=== PATIENT | male | born 1945 | race Caucasian/White ===

== ENCOUNTER → 2023-11-14 10:55 | Outpatient (REF) | payer OTHER, MEDICARE, SELFPAY ==
[2023-11-14 11:53] LABS: % Basophils 0.7 % (0-2); % Immature Granulocytes 0.2 % (0-0.5); % Lymphocytes 29.3 % (20.5-51.1); % Neutrophils 51.8 % (42.2-75.2); Absolute Basophils 0.1 10^3/uL (0-0.2); Absolute Eosinophils 0.3 10^3/uL (0-0.7); Absolute Lymphocytes 2.4 10^3/uL (1.2-3.4); Absolute Monocytes 1.1 10^3/uL (0.1-0.6); Absolute Neutrophils 4.2 10^3/uL (1.4-6.5); Hematocrit 32.4 % (39.0-52.0); Hemoglobin 10.4 g/dL (13.0-18.0); Mean Corp Hgb Conc. 32.1 g/dL (33.0-37.0); Mean Corpuscular Hgb 28.3 pg (27.0-31.0); Mean Platelet Volume 9.2 fL (7.4-10.4); Nucleated Red Blood Cells % 0 % (-); Platelet Count 472 10^3/uL (130-400); Red Blood Cell Count 3.68 10^6/uL (4.70-6.10); Red Cell Dist. Width 13.5 % (11.5-14.5); White Blood Cell Count 8.1 10^3/uL (4.8-10.8)
[2023-11-14 12:17] LABS: ALT (SGPT) 17 U/L (0-50); AST (SGOT) 24 U/L (17-59); Albumin 3.5 g/dl (3.5-5.0); Alkaline Phosphatase 110 U/L (38-126); Blood Urea Nitrogen 21 mg/dl (9-20); Calcium 8.6 mg/dl (8.4-10.2); Carbon Dioxide 26 mmol/L (22-30); Chloride 102 mmol/L (98-107); Glucose 94 mg/dl (70-99); Magnesium 2.3 mg/dl (1.6-2.3); Potassium 4.4 mmol/L (3.5-5.1); Sodium 134 mmol/L (135-145); Total Bilirubin 0.8 mg/dl (0.2-1.3); Total Protein 6.4 g/dl (6.3-8.2); eGFR > 60.00
[2023-11-14 12:50] LABS: TSH 3.37 uIU/ml (0.47-4.68)
== END ==
LOC: OLABN 10:55
PROVIDERS: ATTENDING PHYSICIAN Student in an Organized Health Care Education/Training Program
DX: E03.9 Hypothyroidism, unspecified (principal); I10 Essential (primary) hypertension; E83.42 Hypomagnesemia; I82.509 Chronic embolism and thrombosis of unspecified deep veins of unspecified lower extremity
CPT/HCPCS: 36415; 80053; 83735; 84443; 85025

== ENCOUNTER → 2025-03-29 12:42 | Outpatient (REF) | payer MEDICARE, OTHER, SELFPAY | LOC: RAD 12:42 | PROVIDERS: ATTENDING PHYSICIAN Student in an Organized Health Care Education/Training Program; FAMILY PHYSICIAN Family Medicine | DX: I73.9 Peripheral vascular disease, unspecified (principal); I87.2 Venous insufficiency (chronic) (peripheral) | CPT/HCPCS: 93923; 93925; 93970 ==

== ENCOUNTER 2025-07-25 19:05 | Observation (INO) | payer MEDICARE, OTHER, SELFPAY ==
[2025-07-25 15:16] VITALS: BP 135/60
[2025-07-25 15:47] LABS: Hematocrit 47.2 % (39.0-52.0); Hemoglobin 15.2 g/dL (13.0-18.0); Mean Corp Hgb Conc. 32.2 g/dL (33.0-37.0); Mean Corpuscular Volume 89.1 fL (80.0-94.0); Nucleated Red Blood Cells % 0 % (-); Platelet Count 219 10^3/uL (130-400); Red Cell Dist. Width 13.2 % (11.5-14.5)
[2025-07-25 16:03] LABS: ALT (SGPT) 26 U/L (0-50); AST (SGOT) 22 U/L (17-59); Albumin 4.5 g/dl (3.5-5.0); Alkaline Phosphatase 52 U/L (38-126); Blood Urea Nitrogen 22 mg/dl (9-20); Calcium 9.1 mg/dl (8.4-10.2); Carbon Dioxide 25 mmol/L (22-30); Chloride 108 mmol/L (98-107); Glucose 112 mg/dl (70-99); Potassium 4.4 mmol/L (3.5-5.1); Sodium 137 mmol/L (135-145); Total Protein 7.9 g/dl (6.3-8.2); eGFR > 60.00
[2025-07-25 16:19] LABS: Urine Character Clear (Clear)
[2025-07-25 17:14] VITALS: BMI 28.2
--- NOTE | 2025-07-25 17:40 | ED.MUSCINJ ---
HPI-Injury
<GERMAINE Zheng Last Filed: 07/25/25 18:07>
General
Chief Complaint: Fall
Source: patient
Exam Limitations: none
Time Seen by Provider: 07/25/25 17:14
History of Present Illness-Injury
Initial Injury comments:
79-year-old male with history of COPD hyperlipidemia hypertension GERD presents with onset of dizziness this morning upon awakening. He describes a lightheaded sensation. He tried to get out of bed and fell because of his dizziness. He scraped
his arm against a nightstand. No loss conscious. He has not been acting himself since then. He seemed confused at times. He does describe this dizziness seems to be made worse with position changes and seems to improve with staying still however
symptoms persist throughout the day. No chest pain or shortness of breath. No fevers recently. No issues urinating or moving bowels. No other complaints. He denies any double vision or blurry vision. No neck pain.
Phy Exam
<GERMAINE Zheng Last Filed: 07/25/25 18:07>
Physical Exam
Physical Exam:
General: Well-appearing male no acute respiratory distress
HEENT normal cephalic atraumatic pupils equal round reactive to light maybe subtle horizontal nystagmus noted
Lungs: Clear no wheeze
Heart: Regular rate and rhythm
Lungs: Clear no wheeze
Neurologic exam: Alert and oriented finger-nose intact [id number] intact no drift on exam. Zafar-Hallpike not terribly reproducing symptoms however he had some dizziness when he lays down and turns his head to the left. There is no nystagmus noted
at this time.
Extremities: No cyanosis or edema
Injury Course
<Tejinder Donald PA-C - Last Filed: 07/25/25 18:07>
Orders/Labs/Results
Orders:
Orders
07/25/25 15:26
Electrocardiogram (*1) Urgent
Reason for Study: Chest Pain
EKG- Treatment ONCE
07/25/25 15:34
Complete Blood Count/With Diff Urgent
Comprehensive Metabolic Panel Urgent
Urinalysis Reflex To Culture Urgent
Date Specimen was Collected: 07/25/25
Time Specimen was Collected: 15:27
Urine Microscopic Reflex Cult Urgent
Urine Culture Urgent
ELIAS Source: U
Specimen Description:
Date Specimen was Collected: 07/25/25
Time Specimen was Collected: 15:27
07/25/25 17:[address] [CT Head W/o Iv Contrast] Urgent
Comment:
Reason For Exam: dizziness/gait dysfunction
07/25/25 17:31
Orthostatic VS- Treatment ONCE
07/25/25 18:26
Aspirin 325 mg PO NOW STA
07/25/25 18:34
Admit/Transfer Patient As Directed
Co-Sign Provider:
Level of Care: Observation services
Assign to:: Telemetry
Physician / Group: ran
Diagnosis: tia/cva
Reason for Telemetry: CVA/TIA
Date to Stop Telemetry: 07/28/25
Time to Stop Telemetry: 11:00
PRN Pain Medication Management As Directed
May give lesser potent ordered pain med per pt: Yes
preference::
Protocol:: Medication orders for pain may be administered in a
manner that supports deferring to patient preference
when the pt is:
- Requesting an ordered lesser potent pain medication.
Least to most potent pain medications are defined
as: acetaminophen < NSAID < tramadol < opioids
(morphine, oxycodone, hydromorphone).
- Requesting a lesser dose of the same medication IF
ORDERED.
- Requesting a less intrusive route of administration
if both routes are prescribed by the provider (PO <
IV).
07/25/25 18:35
Code Status As Directed
Resuscitation Status: Full Code
07/25/25 18:[address] Non Medication Order As Directed
Physician Order: please TT me results of orthostatic VS
07/28/25 11:00
DC Protocol for Telemetry ONCE
Abnormal Lab Results
07/25/25
15:34
MCHC 32.2 L g/dL
(33.0-37.0)
Absolute Monos (auto) 1.1 H 10^3/uL
(0.1-0.6)
Monocytes % 11.2 H %
(1.7-9.3)
Chloride 108 H mmol/L
(98-107)
BUN 22 H mg/dl
(9-20)
Glucose 112 H mg/dl
(70-99)
Ur Occult Blood Reflex 2+ A
(Negative)
Urine RBC 3-6 A /HPF
(0-2)
Urine Bacteria (Reflex) Moderate A
(Negative)
Urine Albumin (Reflex) 1+ A
(Neg - Trace)
07/25/25 15:34
07/25/25 15:34
<Braulio Perez, DO - Last Filed: 07/25/25 18:43>
Orders/Labs/Results
Orders:
Orders
07/25/25 15:26
Electrocardiogram (*1) Urgent
Reason for Study: Chest Pain
EKG- Treatment ONCE
07/25/25 15:34
Complete Blood Count/With Diff Urgent
Comprehensive Metabolic Panel Urgent
Urinalysis Reflex To Culture Urgent
Date Specimen was Collected: 07/25/25
Time Specimen was Collected: 15:27
Urine Microscopic Reflex Cult Urgent
Urine Culture Urgent
ELIAS Source: U
Specimen Description:
Date Specimen was Collected: 07/25/25
Time Specimen was Collected: 15:27
07/25/25 17:[address] [CT Head W/o Iv Contrast] Urgent
Comment:
Reason For Exam: dizziness/gait dysfunction
07/25/25 17:31
Orthostatic VS- Treatment ONCE
07/25/25 18:26
Aspirin 325 mg PO NOW STA
07/25/25 18:34
Admit/Transfer Patient As Directed
Co-Sign Provider:
Level of Care: Observation services
Assign to:: Telemetry
Physician / Group: ran
Diagnosis: tia/cva
Reason for Telemetry: CVA/TIA
Date to Stop Telemetry: 07/28/25
Time to Stop Telemetry: 11:00
PRN Pain Medication Management As Directed
May give lesser potent ordered pain med per pt: Yes
preference::
Protocol:: Medication orders for pain may be administered in a
manner that supports deferring to patient preference
when the pt is:
- Requesting an ordered lesser potent pain medication.
Least to most potent pain medications are defined
as: acetaminophen < NSAID < tramadol < opioids
(morphine, oxycodone, hydromorphone).
- Requesting a lesser dose of the same medication IF
ORDERED.
- Requesting a less intrusive route of administration
if both routes are prescribed by the provider (PO <
IV).
07/25/25 18:35
Code Status As Directed
Resuscitation Status: Full Code
07/25/25 18:[address] Non Medication Order As Directed
Physician Order: please TT me results of orthostatic VS
07/28/25 11:00
DC Protocol for Telemetry ONCE
Abnormal Lab Results
07/25/25
15:34
MCHC 32.2 L g/dL
(33.0-37.0)
Absolute Monos (auto) 1.1 H 10^3/uL
(0.1-0.6)
Monocytes % 11.2 H %
(1.7-9.3)
Chloride 108 H mmol/L
(98-107)
BUN 22 H mg/dl
(9-20)
Glucose 112 H mg/dl
(70-99)
Ur Occult Blood Reflex 2+ A
(Negative)
Urine RBC 3-6 A /HPF
(0-2)
Urine Bacteria (Reflex) Moderate A
(Negative)
Urine Albumin (Reflex) 1+ A
(Neg - Trace)
07/25/25 15:34
07/25/25 15:34
<Tejinder Donald PA-C - Last Filed: 07/25/25 18:07>
MDM/Problems Addressed
Differential Diagnosis Includes:
Patient with dizziness causing a fall. No traumatic injury from the fall. Concern for vertigo, TIA, orthostasis.
Labs reviewed without significant finding. Urinalysis without any findings.
Will check CT of the head and orthostatics.
<Tejinder Donald PA-C - Last Filed: 07/25/25 18:07>
*Pulse Oximetry
SaO2: 99
Oxygen Mode of Delivery: Room air
Patient hypoxic: no
*Critical Care Note
Total Time (30-74mins, 75-104mins- exclusive of procedures): Not Applicable
<Tejinder Donald PA-C - Last Filed: 07/25/25 18:07>
Update Note
Update Note:
CT of the head was negative. Concern for ongoing disequilibrium no obvious reproducible dizziness to suggest positional vertigo. Discussed with emergency room attending. Will keep in hospital for further workup
ED Attending Note
<Tejinder Donald PA-C - Last Filed: 07/25/25 18:07>
-
Portions of this chart may have been created with voice recognition software.� Occasional wrong word or��sound alike� substitutions may have occurred due to the inherent limitations of voice recognition software.
<Braulio Perez DO - Last Filed: 07/25/25 18:43>
ED Attending Note
Patient seen and examined by attending physician: Yes
ED Attending Note:
I reviewed and agree with history and treatment plan by Manish Donald. My exam revealed 79-year-old male with no neurologic deficits, unclear if positional vertigo versus posterior CVA. No indication for tPA or TNK admit for further workup.
Discharge Plan
Departure
Patient Disposition: Admit
Date of Disposition: 07/25/25
Time of Disposition: 18:07
Presentation/result/management discussed w/ accepting MD/DO: Hospitalist
Discharge Problem:
Dizziness
Prescriptions:
No Action
loperamide 2 mg capsule
2 mg PO DAILY
atorvastatin 10 mg tablet
10 mg PO DAILY
losartan 25 mg Tablet
25 mg PO DAILY
Referrals:
Krzysztof Montesinos MD [Family Provider, Family Practice]
Interventions
Interventions:
*Risk Screen - Suicide Last Done: 07/25/25 15:16
*Neglect/Abuse Screening Last Done: 07/25/25 15:16
*ED- Fall Risk Assessment Last Done: 07/25/25 15:16
ED- Neurological Assessment Last Done: 07/25/25 17:14
Discharge Date and Time
Print Language: TONGAN
[2025-07-25 17:50] LABS: Urine Squamous Cell 0-2 /LPF (Few); Urine White Cell 0-2 /HPF (0-5)
--- NOTE | 2025-07-25 18:11 | HPS.HSE ---
Family Physician
-
Family Physician: Krzysztof Montesinos
Chief Complaint
-
dizzy
History of Present Illness
79-year-old male with history of COPD hyperlipidemia hypertension GERD, neuroendocrine tumor, prostate cancer presents with onset of lightheaded this morning upon awakening. He describes a lightheaded sensation. He tried to get out of bed, slid
of the mattress and fell on his left arm. he was able to get himself up. No loss conscious.denied hitting head on the floor. he felt little confused in the morning. patient stated lightheaded with sitting up and worsening lightheaded with moving and
off balance when try to walk. patient denied CLRAK, dizzy or syncope. denied blurry vion, numbness, tingling No chest pain or shortness of breath. No fevers recently. denied runny nose, congestion, cough. denied urinary incontinence. chronic urinary
frequency due to Prostate ca. stated chronic diarrhea since the neuroendocrine tumor removal from intestine for which he takes Imodium.
head Ct with no acute findings. admitting for further management.
Medical History
Past Medical History
Past Medical History: Reports Other
Additional Past Medical History:
cervical radiculopathy
pulmonary nodule
JUAREZ
bronchiectasis
HLD
HTN
prostate ca
neuroendocrine cancer
Past Surgical History: Reports Other
Additional Past Surgical History:
bilateral knee surgery
basal cell carcinoma removal
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
Social History
Tobacco: Non-smoker
Alcohol: None
Drug: None
Living: With Family
Family History
Family History: Not pertinent
Allergies / Home Medications
Allergies reflects when Allergies were last updated in [facility].
Home Medications with original date entered in [facility]
Allergy/Medication List:
Allergies
Allergy/AdvReac Type Severity Reaction Status Date / Time
No Known Allergies Allergy Unverified 07/25/25 15:25
Review of Systems
-
Constitutional: Reports No Symptoms
EENT: Reports No Symptoms
Respiratory: Reports No Symptoms
Cardiac: Reports No Symptoms
Abdomen/GI: Reports No Symptoms
: Reports No Symptoms
Musculoskeletal: Reports No Symptoms
Skin: Reports No Symptoms
Neurological: Reports Other (lightheaded)
Endocrine: Reports No Symptoms
Hematologic/Lymphatic: Reports No Symptoms
Psych: Reports No Symptoms
Physical Exam
Vital Signs
Vital Signs
Temp Pulse Resp BP Pulse Ox
98 F 72 16 135/60 99
07/25/25 15:16 07/25/25 15:16 07/25/25 15:16 07/25/25 15:16 07/25/25 17:44
Physical Exam
General: Well Developed, Well Nourished and No Apparent Distress
HEENT: NormoCephalic, Moist mucous membranes and Atraumatic
Respiratory: Clear
Cardiac: S1/S2 and Regular Rhythm; No Murmur or Rub
GI: Soft, Non Tender, Non Distended and Normal Bowel Sounds; No Organomegaly
Rectal: Deferred by Provider
Musculoskeletal: No Clubbing, No Cyanosis and No Edema
Skin: No Rash
Neuro: AO x 3 and Nonfocal/grossly intact
Psych: Calm
Laboratory Results
-
07/25/25 15:34
07/25/25 15:34
Laboratory Results
Total Bilirubin 1.0 mg/dl (0.2-1.3) 07/25/25 15:34
AST 22 U/L (17-59) 07/25/25 15:34
ALT 26 U/L (0-50) 07/25/25 15:34
Alkaline Phosphatase 52 U/L (38-126) 07/25/25 15:34
Data Reviewed
-
CT Scan: Report Reviewed by me
Lab Data: Labs Reviewed by me
Impression/Plan
-
#dizzy/fall/TME concern for CVA
-CT head negative
-obtain MRI, MRA
-statin, asa
-obtain a1c,lipid profile
-obtain orthostatics.
-PT/OT
-neuro eval
-UA negative
#essential HTN
-valsartan continued
#chronic diarrhea
-Imodium continued
#hxt of prostate ca
#hxt of neuroendocrine tumor
-follows [facility]
#DVT Prophylaxis
-scd
#CODE status
-full code
--- NOTE | 2025-07-25 18:14 | W.PN.UPDATE ---
Addendum entered and electronically signed by Fatou Serrano MD 07/25/25 18:45:
*will order CTA this evening after discussion with Dr. Mills
Original Note:
Update Note
Progress Note Update
This is an addendum to H&P written by CASING MIXER Rachell Talley
I saw and examined the patient.
The CASING MIXER's note was reviewed and I agree with the note.
Comment:
Mr. Deven Lara is a 79 yo man with hx COPD, essential HTN, HLD presents to the ER with dizziness after waking up resulting in sliding off of his bed. Family has noticed confusion since then. Dizziness worse with positional changes and he
feels very off balanced when he walks. He reports eating and drinking well/ no nausea/vomiting/diarrhea.
Triage VSS. Labs with WBC 9.8, Hg 15.2, PLT 219, Na 137, K+ 4.4, CO2 25, Cr 1.0, Glucose 112, T. Bili 1.0, AST 22, ALT 26, Alk Phos 52
On exam patient is conversant, in no acute distress. No nystagmus, no facial asymmetry, HINTS exam negative, possible + pronator drift on right, 5/5 strength LE b/l.
HEAD CT
IMPRESSION:
1. No CT evidence for acute intracranial hemorrhage or transcortical infarct.
2. Mild diffuse cerebral and cerebellar volume loss.
3. Mild white matter leukoaraiosis in both cerebral hemispheres.
Disequilibrium, concern for posterior CVA
-asa 325mg PO x 1 now (no contraindication)
-admit to telemetry
-neuro checks
-MRI/ MRA
-Neurology consult
-asa 81mg PO QD
-increase ANNUAL GIVING DIRECTOR Atorvastatin to 40mg for now
-follow up lipid panel and A1c
COPD
Essential HTN
-resume Losartan in morning (24 hours post symptom onset)
HLD - ANNUAL GIVING DIRECTOR statin
DVT PPx
FULL CODE
[2025-07-25] MEDS: ASPIRIN 325 MG PO (19:16)
[2025-07-25 20:53] VITALS: BP 130/78
[2025-07-25 20:56] VITALS: BMI 27.3
[2025-07-25] MEDS: LIPITOR 40 MG PO (21:47)
--- NOTE | 2025-07-25 21:59 | PTCARENOTE ---
Pt arrived via stretcher and ambulated to bedside. Pt assessed and placed on tele, NIH score-0, pt oriented to unit. Side rails up, call mckay within reach, bed set in lowest position. Will continue plan of care.
[2025-07-25 22:24] VITALS: BP 113/59
[2025-07-25 22:25] VITALS: BP 113/59; BP 126/66; BP 130/56; PULSE 63; PULSE 69; PULSE 71
[2025-07-26] VITALS (9 sets, daily range): BP systolic 100–160; BP diastolic 53–90; PULSE 73; O2SAT 96
[2025-07-26 02:11] LABS: Glucose - Point of Care 90 mg/dl (70-99)
[2025-07-26 06:13] LABS: HDL Cholesterol 42 mg/dl; LDL Cholesterol, Calculated 106 mg/dl; Very Low Density Lipoprotein 34 mg/dl (0-30)
--- NOTE | 2025-07-26 08:36 | CON.NEURO4 ---
Addendum entered and electronically signed by Nuno Mills MD 07/26/25 13:11:
Studies reviewed.
I have personally examined the patient. I reviewed and agree with the TICKET MAKER's Note.
My addenda:
Awake, alert, interactive. No acute distress.
Speech intact.
Follows 2-step requests w/o difficulty. No tremor.
Extra-ocular movements grossly intact.
Facial movements full and symmetric. Hearing intact to normal conversational volume.
Normal UE movements bilaterally.
Neck: full ROM.
Chest: no dyspnea
Heart: no JVD
Ext: (-) Clubbing, (-) Cyanosis, (-) Edema
IMPRESSIONS/RECOMMENDATIONS:
Abrupt onset of dizziness without peripheral vertigo findings by examination. Differential diagnosis includes acute ischemic stroke of the posterior circulation, as well as hypertensive encephalopathy
Check MRI of brain with and without contrast due to the patient's prior history of cancer
Rehabilitation evaluations and treatment
Follow orthostatic blood pressures
Check blood work for potential metabolic causes
Unclear if the patient's significant dyspnea is secondary to prior history of COPD
Agree with initiation of aspirin until clarity regarding diagnosis
D/W patient
All questions answered.
Will continue to follow patient.
Original Note:
Documented by User: Vi Parra NP 07/26/25 12:07
Consultation - Neurology 4
-
CONSULTING PHYSICIAN: Nuno Mills MD
REFERRING PHYSICIAN: Hospitalists/BONNIE Maynard
DICTATED BY: BONNIE Kennedy
DATE/TIME OF REQUEST: 07/25/25
DATE/TIME OF CONSULTATION: 07/26/25
Reason for Consultation: Dizziness.
History of Present Illness:
This is an 79-year-old right-handed male who has presented to the hospital on 07/25/25 with report of dizziness. Patient reports that yesterday morning he rolled on to his side to get up out of bed and became dizzy, which he describes as a
light-headed sensation, causing him to fall to the floor. He checked his blood pressure and notes that his systolic was 190. Since then, he reports a similar dizzy sensation while changing position and walking. His family also notes that he has been
confused, not quite his normal self. Today (07/26/25), patient reports that his symptoms are ongoing and he just 'doesn't feel quite right.' He denies any headache, vision changes, speech/swallow difficulty, numbness, and weakness. He notes dyspnea
on exertion, he is unclear as to if this is new for him. He notes that he has gotten dizzy with standing intermittently in the past but not to this extent. He denies any history of TIA or stroke and is not taking any blood-thinning medications.
Past Medical History: Neuroendocrine tumor, HTN, HLD, COPD, JUAREZ, pulmonary nodule, prostate cancer, cervical radiculopathy, prostate cancer, peripheral polyneuropathy
Surgical History: Bowel resection for neuroendocrine tumor, B/l TKR, basal cell carcinoma removal
Family History: Reviewed and noncontributory.
Social History: Denies tobacco, alcohol, and illicit drug use.
Allergies: No known allergies.
Home Medications: See below.
Review of Symptoms:
Patient denies any fever, headache, chest pain, GI or symptoms.
�Per the HPI.�All systems are reviewed negative except above.
Physical Exam:
The patient is afebrile, abdomen is nondistended, breathing is mildly labored, skin is warm and dry, no edema.
NIH Stroke Scale:
I performed the NIH stroke scale on the patient on 07/26/25 at 0945. The patient scored 0 points on the NIH stroke scale assessment, which were assigned as follows: See below.
Neurologic Examination:
The patient is awake, alert and oriented x 3. He is able to follow commands and answer questions appropriately. There is no aphasia or dysarthria. On cranial nerve assessment, pupils are 3 mm bilateral, round and reactive to light and
accommodation. Visual buenrostro are full. Extraocular movements are intact. No nystagmus. Facial sensations are intact and bilaterally symmetrical, there is no facial asymmetry. Hearing is intact bilaterally to normal conversation volume. Tongue palate
and uvula are midline. Sternocleidomastoid strengths are full bilaterally. Motor strengths are 5/5 bilateral upper and lower extremities on medical research [place] scale. There is no drift or involuntary movement noted. Deep tendon reflexes are 2+
bilateral upper and lower extremities and Babinski is absent bilaterally. There was no extinction noted on double simultaneous stimulation. Coordination is intact by finger to nose bilaterally.
Lab Results: See below.
Neuro Imaging:
1. CT head 07/25/25: No CT evidence for acute intracranial hemorrhage or transcortical infarct. Mild diffuse cerebral and cerebellar volume loss. Mild white matter leukoaraiosis in both cerebral hemispheres.
2. 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 Less than 50% diameter stenosis in the proximal left vertebral artery. Less than 50% diameter stenosis in the proximal internal carotid arteries. Severe
discogenic degenerative disease at C3/C4 and C5/C6 causing severe bilateral neural foraminal narrowing and mild central canal stenosis. Mild right paratracheal and supraclavicular lymphadenopathy.
Intraluminal secretions in the trachea and right mainstem bronchus.
Differentials for the patient's presentation include:
1. Dizziness; possible etiologies include a structural brain abnormality and orthostatic hypotension.
2. Neuroendocrine tumor s/p resection.
Patient has the following risk factors for their symptoms: HTN, HLD, age
IV Tenecteplase/IAT candidacy: He was not a candidate due to NIHSS 0, outside of time window.
Recommendations:
-MRI brain w/ and w/o contrast pending.
-Continue aspirin 81mg daily.
-Check orthostatic vital signs BID.
-LDL goal <70. LDL is 106. Home atorvastatin increased from 10mg to 40mg daily.
-Goal normoglycemia, hbA1c is 5.6.
-Checking blood work for metabolic disturbances.
-NIHSS and neurological checks per unit guidelines.
-Provide patient with a stroke education packet.
-PT/OT/ST evaluations.
-DVT prophylaxis.
Discussed patient care with: Dr. Mills, the patient.
Vital Signs and Labs
-
Vital Signs and Labs:
Vital Signs
Temp Pulse Resp BP Pulse Ox
97.4 F 61 17 125/69 97
07/26/25 07:16 07/26/25 07:16 07/26/25 07:16 07/26/25 07:16 07/26/25 07:16
Lab Results
07/25/25 15:34
07/25/25 15:34
Sodium 137 mmol/L (135-145) 07/25/25 15:34
Potassium 4.4 mmol/L (3.5-5.1) 07/25/25 15:34
BUN 22 mg/dl (9-20) H 07/25/25 15:34
Glucose 112 mg/dl (70-99) H 07/25/25 15:34
Calcium 9.1 mg/dl (8.4-10.2) 07/25/25 15:34
LDL Cholesterol, Calc 106 mg/dl 07/26/25 05:09
Medications
-
Active Medications
Generic Name Dose Route Start Last Admin
Trade Name Freq PRN Reason Stop Dose Admin
Acetaminophen 650 mg 07/25/25 20:52
Acetaminophen 650 Mg Rectal Suppository RECTAL 08/22/25 20:51
Q4HPRN PRN
CLARK, mild pain, or temp >100.4F
Acetaminophen 650 mg 07/25/25 20:52
Acetaminophen 325 Mg Tablet PO 08/22/25 20:51
Q4HPRN PRN
CLARK, mild pain, or temp >100.4F
Aspirin 81 mg 07/26/25 08:00 07/26/25 09:24
Aspirin 81 Mg Chewable Tablet PO 08/23/25 07:59 81 mg
DAILY SUSAN Administration
Atorvastatin Calcium 40 mg 07/25/25 22:00 07/25/25 21:47
Atorvastatin (Lipitor) 40 Mg Tablet PO 08/22/25 21:59 40 mg
QPM SUSAN Administration
Loperamide HCl 2 mg 07/26/25 08:00 07/26/25 09:23
Loperamide 2 Mg Capsule PO 08/23/25 07:59 2 mg
DAILY SUSAN Administration
Losartan Potassium 25 mg 07/26/25 08:00 07/26/25 09:23
Losartan 25 Mg Tablet PO 08/23/25 07:59 25 mg
DAILY SUSAN Administration
Sodium Chloride 0 flush 07/25/25 22:00
Sodium Chloride 0.9% (Flush) Syringe IV 08/22/25 21:59
PER PROTOCOL SUSAN
Home Medications
�Medication �Instructions �Recorded
atorvastatin 10 mg tablet 10 mg PO DAILY High Cholesterol 07/25/25
loperamide 2 mg capsule 2 mg PO DAILY Gastrointestinal 07/25/25
Issue
losartan 25 mg tablet 25 mg PO DAILY Blood Pressure 07/25/25
NIH Stroke Score
Subsequent NIH Scale
Date of Subsequent NIH Scale: 07/26/25
Time of Subsequent NIH Scale: 09:45
NIH Stroke Score
Level of Consciousness: 0 - Alert
LOC Questions: 0-Answers both correctly
LOC Commands: 0-Performs both correctly
Best Horizontal Gaze: 0-Normal
Visual Buenrostro: 0=Normal, no visual loss
Facial Palsy: 0=Normal, symmetrical
Motor - Right Arm: 0=No drift 10 seconds
Motor - Left Arm: 0=No drift 10 seconds
Motor - Right Le-No drift 5 seconds
Motor - Left Le-No drift 5 seconds
Limb Ataxia: 0-Absent
Sensation: 0-Normal
Best Language: 0-No aphasia
Dysarthria: 0-Normal
Extinction and Inattention: 0-No abnormality
NIH Total Score:: 0
Modified Anuja (mRS) Score
Modified Anuja Scale (mRS): No significant disability. Able to carry out usual activities.
Score: 1

Documented by User: Nuno Mills MD 07/26/25 13:08
NIH Stroke Score
NIH Stroke Score
NIH Total Score:: 0
Modified Mcroberts (mRS) Score
Score: 1
[2025-07-26] MEDS: IMODIUM 2 MG PO (09:23)
[2025-07-26] MEDS: COZAAR 25 MG PO (09:23)
[2025-07-26] MEDS: LOW STRENGTH ASPIRIN 81 MG PO (09:24)
--- NOTE | 2025-07-26 09:27 | CARDSERVLU ---
Echocardiogram with Lumason completed after protocol screening completed. Allergies verified.
Patent IV site: __LAC___
IV site flushed with 0.9% NaCl pre and post administration.
Diluted bolus method utilized to enhance visualization of ventricular stark.
Total volume given: __4__ mL
Patient tolerated all procedures but developed warm sensation in his face and felt as if he was getting a headache. He said that his pain was a four at onset, but a two by the time he left the department.
--- NOTE | 2025-07-26 09:35 | PTOTSP ---
Dysphagia Evaluation
Oral/pharyngeal swallowing WFL based on clinical bedside swallowing evaluation.
No dysarthria. No obvious aphasia in conversation. Will complete cognitive linguistic testing as needed if a confirmed stroke.
Recommend:
1. Regular, Thin
2. Medications as best tolerated
3. General aspiration precautions
4. Cognitive linguistic testing if medically appropriate pending results of further medical work up
[2025-07-26 10:31] LABS: Glycohemoglobin (HgbA1c) 5.6 % (4.0-5.9)
[2025-07-26 13:24] LABS: Ferritin 58.7 ng/ml (17.9-464.0)
[2025-07-26 13:56] LABS: Folate 4.3 ng/ml (2.76-20); Vitamin B12 < 159 pg/ml (239-931)
--- NOTE | 2025-07-26 14:35 | W.PN.HOSP.TC ---
Today's Communication/Plan
-
mri brain
Assessment / Plan
Assessment / Plan
Physical Exam
General: Well Developed, Well Nourished and No Apparent Distress
HEENT: NormoCephalic, Moist mucous membranes and Atraumatic
Respiratory: Clear
Cardiac: S1/S2 and Regular Rhythm; No Murmur or Rub
GI: Soft, Non Tender, Non Distended and Normal Bowel Sounds; No Organomegaly
Rectal: Deferred by Provider
Musculoskeletal: No Clubbing, No Cyanosis and No Edema
Skin: No Rash
Neuro: AO x 3 and Nonfocal/grossly intact
Psych: Calm
#dizzy/fall/TME concern for CVA
-CT head negative
-obtain MRI
-f/u orthostatics
-statin, asa
-obtain a1c,lipid profile
-PT/OT
-neuro eval
-UA negative
#SOB, chronic
-has been worked up with Pulm in the past
-Refuses CPAP
-Denies need for standing inhalers, states has albuterol prn
-CXR for baseline - no acute abnormalities
#Hyponatremia
-resolved
#essential HTN
-valsartan continued
#HLD
-statin
#chronic diarrhea
-Imodium continued
#hxt of prostate ca
#hxt of neuroendocrine tumor
-follows [facility]
#DVT Prophylaxis
-scd
#CODE status
-full code
Anticipated Discharge: Within 24 hours
Subjective/Interval History
-
Date of Service: July 26, 2025
symptoms resolved
Objective Data
-
Labs:
Laboratory Results
07/26/25
10:13
PT Cancelled
INR Cancelled
Vital Signs:
Vital Signs
Temp Pulse Resp BP Pulse Ox
97.8 F 88 17 109/59 95
07/26/25 11:13 07/26/25 11:13 07/26/25 11:13 07/26/25 11:13 07/26/25 11:13
Review of Systems
-
History Source: Patient
All other systems: Not reviewed unless documented
Data Reviewed
-
CT Scan: Report Reviewed by me
Labs: Labs Reviewed by me
[2025-07-26] MEDS: LIPITOR 40 MG PO (19:44)
[2025-07-26] MEDS: CYANOCOBALAMIN 1000 MCG IM (19:44)
[2025-07-27 03:00] VITALS: BP 121/60
--- NOTE | 2025-07-27 07:29 | W.PN.NEURO.1 ---
Addendum entered and electronically signed by Deepika Cleary MD 07/27/25 16:14:
A/p: Vitamin B12 deficiency
- Continue cyanocobalamin
- Check folate, antiparietal and intrinsic factor antibodies
Original Note:
Today's Communication / Plan
-
.
Subjective/Objective
Subjective Data
Date of Service: July 27, 2025
Neurology follow-up note
HPI:This is an 79-year-old right-handed man who presented to [facility] on 07/25/2025 with dizziness. The patient developed an acute dizziness with associated imbalance after he got up on the day of presentation. He slid off the
bed, and sat for a while, but the dizziness did not improve. When he attempted to go to the bathroom, it felt like walking on a boat. He waited 4-5 hours for the symptoms to resolve, but they persisted, prompting his daughter to suggest he come to
the hospital.
The dizziness lasted for 2 days and cleared up yesterday afternoon. He describes his brain as feeling 'a little fuzzy.' According to patient's daughter Mr. Maza patient was transiently slow to answer questions when her spouse went to check on
him. No reports of headaches, change in vision, strength. Patient has had chronic left ear tinnitus and hearing impairment.
ER VS: 135/60, 72, afebrile
EKG: Normal sinus rhythm with first-degree AV block
PDMP: No recently prescribed medications
Labs: LDL�106, A1c�5.6.
CTA head/neck-50-70% stenosis of the right vert.
Brain MRI w/wo ellyn-no acute infarcts, mild asymmetric dural enhancement along the anterior right middle cranial fossa which is likely vascular in nature. Dural metastasis or sessile meningioma is considered Scattered areas of more confluent
T2/FLAIR hyperintensities within the subcortical and periventricular white matter of the bilateral cerebral hemispheres which is nonspecific, however likely sequelae of moderate small vessel ischemic disease. Mild parenchymal volume loss. unlikely.
PMH: neuroendocrine tumor, prostate CA, COPD, HTN, DLP, SNHL, BCC,
PSH: Bilateral cataract surgery, right median nerve decompression at the wrist and ulnar nerve decompression at the elbow.
SH: , lives alone, independent in ADLs, retired commercial electrician, non-smoker, no history excessive alcohol use
FH: Father�alcohol addiction, mother�stroke
All: NKDA
ROS: HEENT: Negative for ear pain or ringing in ears (patient has baseline tinnitus).
Gastrointestinal: Negative for nausea, vomiting, diarrhea.
Neurological: Positive for dizziness lasting 2 days (resolved), imbalance, brain feeling 'fuzzy,' and feet feeling cold with sensation like 'rubber bands.' Negative for numbness, weakness on one side, slurred speech, swallowing problems, or double
vision.
General: Well developed. In no acute distress.
Cardio: Regular rate and rhythm without murmur. Extremities are without cyanosis or edema.
Neuro:
Mental Status: Alert, oriented to person, place, and date. Normal attention and recall. Good fund of knowledge. Follows complex requests across the midline. Comprehension, naming, and repetition intact. Immediate recall 3/3.
Cranial Nerves: Pupils are surgical. EOMs full. Visual mijares full to confrontation. No ptosis. No nystagmus. V1-V3 intact to light touch and pinprick bilaterally, symmetric. Face symmetric. Impaired hearing AU. The palate elevated well.
SCMs and traps 5/5. Tongue midline. No dysarthria.
Motor: Normal bulk and tone. No pronator or arm drift. Strength 5/5 throughout. No clonus.
Reflexes: 2+ throughout the upper extremities and 1+ knees. Plantar responses flexor bilaterally.
Sensory: Absent vibration at the toes, and ankles
Coordination: Mild action hand tremor. No dysmetria
Gait: deferred
Assessment and Plan:
I. BPPV. BL SNHL
II. R vertebral artery stenosis, asymptomatic.
III. Distal symmetric large fiber polyneuropathy
IV. 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
-Fall precautions
-Avoid cerebral hypoperfusion
-Polyneuropathy blood work
-LDL goal�less than 100
-Outpatient ENT follow-up
-Outpatient neurology follow-up.
I personally reviewed all radiology and labs along with past medical records pertinent to current medical problems. Total time spent in patient care is 55minutes.
Thank you for allowing us to participate in the care of this patient. Please do not hesitate to contact us with any questions or concerns.
Objective Data
Vital Signs
Temp Pulse Resp BP Pulse Ox
36.8 C 67 18 121/60 95
07/27/25 03:00 07/27/25 03:00 07/27/25 03:00 07/27/25 03:00 07/27/25 03:00
PT Cancelled 07/26/25 10:13
INR Cancelled 07/26/25 10:13
Sodium 137 mmol/L (135-145) 07/25/25 15:34
Potassium 4.4 mmol/L (3.5-5.1) 07/25/25 15:34
BUN 22 mg/dl (9-20) H 07/25/25 15:34
Glucose 112 mg/dl (70-99) H 07/25/25 15:34
Calcium 9.1 mg/dl (8.4-10.2) 07/25/25 15:34
LDL Cholesterol, Calc 106 mg/dl 07/26/25 05:09
Vitamin B12 < 159 pg/ml (239-931) L 07/26/25 05:09
Patient Allergies
No Known Allergies Allergy (Unverified 07/25/25 15:25)
Vital Signs and Labs
-
Vital Signs and Labs:
Vital Signs
Temp Pulse Resp BP Pulse Ox
36.6 C 71 16 127/71 95
07/27/25 12:11 07/27/25 12:11 07/27/25 12:11 07/27/25 12:11 07/27/25 12:11
Lab Results
07/27/25 08:40
07/27/25 08:40
PT Cancelled 07/26/25 10:13
INR Cancelled 07/26/25 10:13
Sodium 137 mmol/L (135-145) 07/27/25 08:40
Potassium 3.9 mmol/L (3.5-5.1) 07/27/25 08:40
BUN 25 mg/dl (9-20) H 07/27/25 08:40
Glucose 95 mg/dl (70-99) 07/27/25 08:40
Calcium 9.0 mg/dl (8.4-10.2) 07/27/25 08:40
LDL Cholesterol, Calc 106 mg/dl 07/26/25 05:09
Vitamin B12 < 159 pg/ml (239-931) L 07/26/25 05:09
Medications
-
Medications:
Generic Name Dose Route Start Last Admin
Trade Name Freq PRN Reason Stop Dose Admin
Acetaminophen 650 mg 07/25/25 20:52
Acetaminophen 650 Mg Rectal Suppository RECTAL 08/22/25 20:51
Q4HPRN PRN
CLARK, mild pain, or temp >100.4F
Acetaminophen 650 mg 07/25/25 20:52
Acetaminophen 325 Mg Tablet PO 08/22/25 20:51
Q4HPRN PRN
CLARK, mild pain, or temp >100.4F
Aspirin 81 mg 07/26/25 08:00 07/27/25 11:11
Aspirin 81 Mg Chewable Tablet PO 08/23/25 07:59 81 mg
DAILY SUSAN Administration
Atorvastatin Calcium 40 mg 07/25/25 22:00 07/26/25 19:44
Atorvastatin (Lipitor) 40 Mg Tablet PO 08/22/25 21:59 40 mg
QPM SUSAN Administration
Cyanocobalamin 1,000 mcg 07/27/25 08:00 07/27/25 11:11
Cyanocobalamin (Vitamin B-12) 500 Mcg Tablet PO 08/24/25 07:59 1,000 mcg
DAILY SUSAN Administration
Loperamide HCl 2 mg 07/26/25 08:00 07/27/25 11:10
Loperamide 2 Mg Capsule PO 08/23/25 07:59 2 mg
DAILY SUSAN Administration
Losartan Potassium 25 mg 07/26/25 08:00 07/27/25 11:11
Losartan 25 Mg Tablet PO 08/23/25 07:59 25 mg
DAILY SUSAN Administration
Sodium Chloride 0 flush 07/25/25 22:00
Sodium Chloride 0.9% (Flush) Syringe IV 08/22/25 21:59
PER PROTOCOL SUSAN
[2025-07-27 08:08] VITALS: BP 143/75
[2025-07-27 09:45] LABS: Hematocrit 43.2 % (39.0-52.0); Hemoglobin 14.1 g/dL (13.0-18.0); Mean Corp Hgb Conc. 32.6 g/dL (33.0-37.0); Mean Corpuscular Volume 89.4 fL (80.0-94.0); Platelet Count 220 10^3/uL (130-400); Red Cell Dist. Width 13.2 % (11.5-14.5)
[2025-07-27 10:07] LABS: ALT (SGPT) 22 U/L (0-50); AST (SGOT) 20 U/L (17-59); Albumin 3.9 g/dl (3.5-5.0); Alkaline Phosphatase 54 U/L (38-126); Blood Urea Nitrogen 25 mg/dl (9-20); Calcium 9.0 mg/dl (8.4-10.2); Carbon Dioxide 24 mmol/L (22-30); Chloride 110 mmol/L (98-107); Estimated Creatinine Clearance 63 ml/min; Glucose 95 mg/dl (70-99); Potassium 3.9 mmol/L (3.5-5.1); Sodium 137 mmol/L (135-145); Total Protein 7.0 g/dl (6.3-8.2); eGFR > 60.00
[2025-07-27] MEDS: IMODIUM 2 MG PO (11:10)
[2025-07-27] MEDS: COZAAR 25 MG PO (11:11)
[2025-07-27] MEDS: LOW STRENGTH ASPIRIN 81 MG PO (11:11)
[2025-07-27] MEDS: VITAMIN B-12 1000 MCG PO (11:11)
[2025-07-27 12:11] VITALS: BP 127/71
--- NOTE | 2025-07-27 12:16 | W.PN.HOSP.TC ---
Addendum entered and electronically signed by Ganga Miles MD 07/27/25 14:59:
[id number]
Original Note:
Today's Communication/Plan
-
asa, increased statin
f/u pulm, pcp, neurology (including repeat brain imaging) outpt
Assessment / Plan
Assessment / Plan
Physical Exam
General: Well Developed, Well Nourished and No Apparent Distress
HEENT: NormoCephalic, Moist mucous membranes and Atraumatic
Respiratory: Clear
Cardiac: S1/S2 and Regular Rhythm; No Murmur or Rub
GI: Soft, Non Tender, Non Distended and Normal Bowel Sounds; No Organomegaly
Rectal: Deferred by Provider
Musculoskeletal: No Clubbing, No Cyanosis and No Edema
Skin: No Rash
Neuro: AO x 3 and Nonfocal/grossly intact
Psych: Calm
#dizzy/fall/TME concern for CVA
-CT head negative
-obtain MRI - mild asymmetric dural enhancement along the anterior right middle cranial fossa which is likely vascular in nature. Dural metastasis or sessile meningioma is considered unlikely although a follow-up may be considered to ensure
stability.
-increased statin, asa
-orthostatic neg
-obtain a1c - 5.6
-PT/OT
-neuro eval
-UA negative
#SOB, chronic
-has been worked up with Pulm in the past
-Refuses CPAP
-Denies need for standing inhalers, states has albuterol prn
-CXR for baseline - no acute abnormalities
-F/u outpatient pulm
#Hyponatremia
-resolved
#essential HTN
-valsartan continued
#HLD
-statin
#chronic diarrhea
-Imodium continued
#hxt of prostate ca
#hxt of neuroendocrine tumor
-follows [facility]
#DVT Prophylaxis
-scd
#CODE status
-full code
More than 30 minutes spent in discharge including
Final examination of the patient
Summarizing hospital stay
Instructions for continuing care to all relevant caregivers
Preparation of discharge records, prescriptions, and referral forms
Total time spent (in minutes): 36
Anticipated Discharge: Today
Subjective/Interval History
-
Date of Service: July 27, 2025
No acute events overnight, feels well
Objective Data
-
Labs:
Laboratory Results
07/27/25
08:40
WBC 9.4
Hgb 14.1
Hct 43.2
Plt Count 220
Sodium 137
Potassium 3.9
Chloride 110 H
Carbon Dioxide 24
BUN 25 H
Creatinine 1.0
Glucose 95
Calcium 9.0
Total Bilirubin 0.9
AST 20
ALT 22
Alkaline Phosphatase 54
Vital Signs:
Vital Signs
Temp Pulse Resp BP Pulse Ox
97.8 F 71 16 127/71 95
07/27/25 12:11 07/27/25 12:11 07/27/25 12:11 07/27/25 12:11 07/27/25 12:11
I&O
07/26/25 07/27/25 07/28/25
06:59 06:59 06:59
Intake Total 1380 / 1380
Balance 1380 / 1380
Review of Systems
-
History Source: Patient
All other systems: Not reviewed unless documented
Data Reviewed
-
CT Scan: Report Reviewed by me
MRI: Report Reviewed by me
Labs: Labs Reviewed by me
--- NOTE | 2025-07-27 12:19 | W.DS.TRANS ---
DC Summary - Flight Service Agent
-
Discharge Instructions:
Discharge Diagnosis/Procedures Dizziness
Hyperlipidemia
Diet Low Cholesterol,Low Fat
Activity As tolerated
Blood Work CBC and CMP in 1 week with PCP
Others Tests Follow-up brain MRI outpatient, defer to primary
and neurology on timing; echo as per primary
Instructions:
Stand-Alone Forms:
Changes to Home Medications: Yes
Discharge Medications:
DC Medications w/original date entered in [employer]
loperamide 2 mg capsule 2 mg PO DAILY Gastrointestinal Issue 07/25/25
losartan 25 mg tablet 25 mg PO DAILY Blood Pressure 07/25/25
aspirin 81 mg chewable tablet 81 mg PO DAILY 30 days #30 tabs 07/27/25
atorvastatin 40 mg tablet 40 mg PO QPM 30 days #30 tabs 07/27/25
cyanocobalamin (vitamin B-12) 500 mcg tablet 1,000 mcg (2 x 500 mcg) PO DAILY 30 days #60 tabs 07/27/25
Home Medication Changes
aspirin 81 mg chewable tablet 81 mg PO DAILY 30 days #30 tabs 07/27/25
atorvastatin 40 mg tablet 40 mg PO QPM 30 days #30 tabs 07/27/25
cyanocobalamin (vitamin B-12) 500 mcg tablet 1,000 mcg (2 x 500 mcg) PO DAILY 30 days #60 tabs 07/27/25
Pending Results: No
--- NOTE | 2025-07-27 14:18 | CM ---
Initial assessment completed with patient who lives alone in a 2nd floor apartment with 14 steps to enter. [employer]EL[employer] patient was independent in ADL's and ambulation, drives. Has and does not use a SPC, RW and commode in the home. No in-home services. No
HC-POA. No VA benefits. No psychiatric hospitalizations. PCP is Dr. Krzystzof Montesinos. Pharmacy is [facility]. Discharge POC: Home with [facility] RN, PT/OT services.
--- NOTE | 2025-07-27 14:28 | CM ---
Patient has been medically cleared for discharge to home with [facility] RN, PT/OT services. Patient has arranged for transport home.
[2025-07-27 16:00] VITALS: BP 143/68
[2025-07-30 18:52] LABS: Gastric Parietal Cell Ab, IgG 1.9 Units (0.0-24.9)
[2025-07-31 12:36] LABS: Vitamin B1, Whole Blood 171 nmol/L (70-180)
[2025-07-31 13:08] LABS: Albumin 3.86 g/dL (3.75-5.01); Free Kappa Light Chains,Quant 22.38 mg/L (3.30-19.40); Free Lambda Light Chains,Quant 17.57 mg/L (5.71-26.30); Immunofixation Electrophoresis IFE Done; Kappa/Lambda Fr Light Ratio 1.27 (0.26-1.65); Total Protein-Electrophoresis 7.0 g/dL (6.3-8.2)
[2025-08-01 00:51] LABS: Intrinsic Factor Blocking Ab Negative (Negative)
== END 2025-07-27 17:47 | disposition home health service (06) ==
LOC: 3 WEST ACU 19:05
PROVIDERS: Emergency Medicine; Registered Nurse; ADMITTING PHYSICIAN Student in an Organized Health Care Education/Training Program; ATTENDING PHYSICIAN Internal Medicine; CONSULT PHYSICIAN Psychiatry & Neurology Neurology; EMERGENCY PHYSICIAN Emergency Medicine; FAMILY PHYSICIAN Family Medicine
DX: R42 Dizziness and giddiness (principal); J44.9 Chronic obstructive pulmonary disease, unspecified; I10 Essential (primary) hypertension; K21.9 Gastro-esophageal reflux disease without esophagitis; E78.5 Hyperlipidemia, unspecified; E87.1 Hypo-osmolality and hyponatremia; R19.7 Diarrhea, unspecified; Z79.899 Other long term (current) drug therapy; E53.8 Deficiency of other specified B group vitamins; H91.90 Unspecified hearing loss, unspecified ear; D3A.8 Other benign neuroendocrine tumors; G47.33 Obstructive sleep apnea (adult) (pediatric); G62.9 Polyneuropathy, unspecified; W06.XXXA Fall from bed, initial encounter
CPT/HCPCS: 70450; 70496; 70498; 70553; 71046; 80053; 80061; 81003; 81015; 82607; 82728; 82746; 82784; 82962; 83036; 83516; 83521; 84155; 84165; 84425; 84443; 85025; 85027; 86334; 86340; 87086; 92610; 93005; 93306; 97162; 97166; 99285; A9575; G0378; Q9950; Q9967

== ENCOUNTER → 2025-08-05 11:15 | Outpatient (REF) | payer MEDICARE, OTHER, SELFPAY ==
[2025-08-05 12:05] LABS: Hematocrit 44.0 % (39.0-52.0); Hemoglobin 14.4 g/dL (13.0-18.0); Mean Corp Hgb Conc. 32.7 g/dL (33.0-37.0); Mean Corpuscular Volume 87.1 fL (80.0-94.0); Nucleated Red Blood Cells % 0 % (-); Platelet Count 276 10^3/uL (130-400); Red Cell Dist. Width 13.1 % (11.5-14.5)
[2025-08-05 12:07] LABS: ALT (SGPT) 17 U/L (0-50); AST (SGOT) 19 U/L (17-59); Albumin 4.1 g/dl (3.5-5.0); Alkaline Phosphatase 69 U/L (38-126); Blood Urea Nitrogen 17 mg/dl (9-20); Calcium 8.8 mg/dl (8.4-10.2); Carbon Dioxide 23 mmol/L (22-30); Chloride 106 mmol/L (98-107); Glucose 112 mg/dl (70-99); Potassium 4.0 mmol/L (3.5-5.1); Sodium 136 mmol/L (135-145); Total Protein 7.3 g/dl (6.3-8.2); eGFR > 60.00
== END ==
LOC: CLAB 11:15
PROVIDERS: ATTENDING PHYSICIAN Physician Assistant
DX: E78.5 Hyperlipidemia, unspecified (principal); D51.9 Vitamin B12 deficiency anemia, unspecified
CPT/HCPCS: 36415; 80053; 85025

== ENCOUNTER → 2025-08-14 12:32 | Outpatient (REF) | payer MEDICARE, OTHER, SELFPAY | LOC: RCS 12:32 | PROVIDERS: ATTENDING PHYSICIAN Physician Assistant; FAMILY PHYSICIAN Family Medicine | DX: I65.23 Occlusion and stenosis of bilateral carotid arteries (principal); R05.1 Acute cough | CPT/HCPCS: 71046 ==

== ENCOUNTER 2025-08-26 13:32 | Outpatient (RCR) | payer MEDICARE, OTHER, SELFPAY | END 2025-08-26 23:59 | disposition home or self-care (01) | LOC: RPT 13:32 | PROVIDERS: ATTENDING PHYSICIAN Physician Assistant | DX: R42 Dizziness and giddiness (principal); Z73.6 Limitation of activities due to disability; R26.89 Other abnormalities of gait and mobility; W06.XXXD Fall from bed, subsequent encounter | CPT/HCPCS: 97112; 97162 ==

== ENCOUNTER 2025-09-05 09:36 | Outpatient (RCR) | payer MEDICARE, OTHER, SELFPAY | END 2025-09-05 23:59 | disposition home or self-care (01) | LOC: RPT 09:36 | PROVIDERS: ATTENDING PHYSICIAN Physician Assistant | DX: R42 Dizziness and giddiness (principal); Z73.6 Limitation of activities due to disability; R26.89 Other abnormalities of gait and mobility; W06.XXXD Fall from bed, subsequent encounter | CPT/HCPCS: 97112 ==